=== PATIENT | female | born 1945 | race Caucasian/White ===

== ENCOUNTER 2016-12-01 06:22 | Day surgery (SDC) | payer MEDICARE, OTHER ==
[2016-11-30 11:57] LABS: HEMATOCRIT 37.8 % (36.0-48.0); HEMOGLOBIN 11.9 g/dL (12-16); MCH 30.9 pg (26.0-34.0); MCHC 31.5 g/dL (31.0-37.0); MCV 98.2 fL (80.0-100.0); MEAN PLATELET VOLUME 9.5 fL (7.4-10.4); RBC 3.85 10x6/uL (4.00-5.40); WBC 6.6 10x3/uL (4.8-10.8)
[~2016-12-01] VITALS: Ht 172.7 cm; Wt 56.7 kg
[~2016-12-01 06:22] MED LIST: AUBAGIO PO; CALCIUM 500 + D1 TAB PO; COLACE100 MG PO; ELIQUIS2.5 MG PO; FISH OIL 1,0001 CA1 PO; HYDROCODONE-APA1 TAB PO; LEVAQUIN250 MG PO; MS CONTIN15 MG PO; MULTIPLE VITAMI1 TA1 PO; NALOXONE HC0.4 MG/M1 PO; NAPROSYN375 MG PO; NEURONTIN 400400 MG PO; SALINE FLUSH10 ML IV; SENOKOT-S TABLE1 TAB PO; ULTRAM50 MG PO; ZANAFLEX2 M1 PO; ZANAFLEX4 MG PO
[2016-12-01] MEDS ORDERED: PROTONIX40 MG PO (06:41)
[2016-12-01 06:43] VITALS: BP 168/87; Ht 172.7 cm; Wt 56.7 kg
[2016-12-01] MEDS ORDERED: FERREX 28 TABL1 EACH PO (06:49)
[2016-12-01] MEDS ORDERED: DULCOLAX STOOL100 MG PO (06:49)
[2016-12-01] MEDS ORDERED: HYDROCODONE-APA1 TAB PO (09:10)
--- NOTE | 2016-12-01 10:51 | NUR ---
IV DC WITH CATHER TIP INTACT
--- NOTE | 2016-12-04 11:01 | OP ---
PATIENT NAME: ESVIN BACA MEDICAL RECORD: [id number] :45 LOCATION:D.[facility] ADMISSION DATE: SURGEON: KIKE DRAPER MD DATE OF OPERATION: 12/01/2016 Orthopedic Surgery Operative Note PREOPERATIVE DIAGNOSIS: Painful hardware of the right clavicle. POSTOPERATIVE DIAGNOSIS: Painful hardware of the right clavicle. PROCEDURE: Removal of painful hardware of the clavicle. SURGEON: Kike Draper MD. ANESTHESIA: General. INTRAOPERATIVE COMPLICATIONS: None. SUMMARY OF PATHOLOGIC FINDINGS: Essentially none. The hardware was very close to the subcutaneous area in a 71-year-old female and had become very bothersome. OPERATIVE SUMMARY IN DETAIL: After obtaining the appropriate orthopedic surgery consent as well as anesthetic consultation, evaluation and clearance, the patient was brought and placed on the operating table in supine position. After general laryngeal mask was administered, the patient was placed in the beach chair position. All pressure points were well padded. She was held firmly to the operating table using the vacuum pack suction system. Right upper extremity and clavicle were prepped and draped across the midline. Incision was made directly over the clavicle as her previous incision was severely out of line with where the clavicle was. This was taken directly down to the clavicle to the platysma. Serial and sequential removal of all screws were done followed by easy removal of the clavicle. The clavicle was well-healed. The wound was copiously irrigated and closed with 2-0 Vicryl followed by skin jennifer. Sterile dressings were applied. The patient was awakened, taken to recovery in stable condition. All final needle and sponge counts were correct. 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
== END 2016-12-01 11:20 | disposition home or self-care (01) ==
LOC: D.OPS 06:22 → D.PAN 08:00 → D.OPS 08:00
PROVIDERS: Anesthesiology
DX: T84.84XA Pain due to internal orthopedic prosthetic devices, implants and grafts, initial encounter (principal); M25.511 Pain in right shoulder

== ENCOUNTER 2016-12-08 09:37 | Day surgery (SDC) | payer MEDICARE, OTHER ==
[~2016-12-08] VITALS: Ht 172.7 cm; Wt 54.4 kg
[~2016-12-08 09:37] MED LIST changes: +DULCOLAX STOOL100 MG PO; +FERREX 28 TABL1 EACH PO; +PROTONIX40 MG PO
[2016-12-08 10:24] LABS: HEMATOCRIT 36.9 % (36.0-48.0); HEMOGLOBIN 11.8 g/dL (12-16); MCH 31.1 pg (26.0-34.0); MCV 97.1 fL (80.0-100.0); MEAN PLATELET VOLUME 9.1 fL (7.4-10.4); RBC 3.8 10x6/uL (4.00-5.40); RDW 14.1 % (11.5-14.5)
[2016-12-08 10:31] LABS: ANION GAP 12.2 mmol/L (8-16); CALCIUM 9.2 mg/dL (8.5-10.1); CARBON DIOXIDE 29.8 mmol/L (21.0-32.0); CREATININE - SERUM 0.9 mg/dL (0.6-1.3)
[2016-12-08 10:35] VITALS: BP 166/86; Ht 172.7 cm; Wt 54.4 kg
--- NOTE | 2016-12-08 13:22 | NUR ---
VANCOMYCIN 1 GM/250 NS INFUSING ON ARRIVAL TO PACU WITH 150CC LEFT TO COUNT.
[2016-12-08] MEDS ORDERED: HYDROCODONE-APA1 TAB PO (13:31)
--- NOTE | 2016-12-08 15:13 | NUR ---
IV DC WITH CATHER TIP INTACT
--- NOTE | 2016-12-12 18:57 | OP ---
PATIENT NAME: ESVIN BARKSDALE MEDICAL RECORD: [id number] :45 LOCATION:[facility] ADMISSION DATE: SURGEON: KIKE DRAPER MD DATE OF OPERATION: 12/08/2016 PREOPERATIVE DIAGNOSIS: Recurrent midshaft clavicle fracture of the right clavicle. POSTOPERATIVE DIAGNOSIS: Recurrent midshaft clavicle fracture of the right clavicle. PROCEDURE: Revision ORIF of right clavicle. ANESTHESIA: General. INTRAOPERATIVE COMPLICATIONS: None. OPERATIVE SUMMARY IN DETAIL: After obtaining the appropriate preoperative orthopedic surgery consent as well as anesthetic consultation, evaluation and clearance, the patient was brought to on the operating room and placed on the operating table in supine position. After general laryngeal mask was administered, the patient was placed in the beach chair position. Right shoulder and clavicle were prepped and draped in routine sterile fashion. Previously placed jennifer were removed. The incision was taken down directly over the area of fracture, hematoma was removed, fracture was reduced provisionally pinned with 0.062 K-wire. Side specific left [place] plate was put in a compression fashion. This was viewed intraoperatively. Radiographs were submitted for radiologist's review. Having completed this, the wound was copiously irrigated and closed with #2 Vicryl followed by skin jennifer. Sterile dressings were applied. The patient was awakened and taken to the recovery room in stable condition. All final needle and sponge counts were correct. TRANSINT:[id number] Voice Confirmation ID: [id number] DOCUMENT ID: [id number] KIKE DRAPER MD at 1857 CC: [id number] DICTATION DATE: 12/08/16 1318 SERVICER: 12/08/16 2149 [facility] 12/08/16 [place] [id number] [place] [id number]
== END 2016-12-08 16:00 | disposition home or self-care (01) ==
LOC: D.PAN 09:37 → D.OPS 18:00 → D.PAN 18:00
PROVIDERS: Anesthesiology
DX: S42.021A Displaced fracture of shaft of right clavicle, initial encounter for closed fracture (principal); M81.0 Age-related osteoporosis without current pathological fracture; Z95.0 Presence of cardiac pacemaker